=== PATIENT | female | born 1995 | race African-American/Black ===

== ENCOUNTER 2020-01-08 02:16 | Inpatient (IN) | payer BC ==
[2020-01-08] MEDS ORDERED: PROMETHAZINE HCL 25 MG/1 ML VIAL IVPUSH ONE (03:42)
[2020-01-08] MEDS ORDERED: BUTORPHANOL TARTRATE 1 MG/ML VIAL IVPB ONE (03:42)
--- NOTE | 2020-01-08 03:52 | HP ---
Past Medical History - Admission History of Present Illness: 24 yo @ 39 6/7 wks by first trimester ultrasound, EDC 01/09/2020 complicated by: 1. Poor weight gain during / weightloss during Starting weight 172 - 6 lb wt loss during Most recent ultrasound: 12/29 EFW 2973 g (24%) 6 lb 9 oz 2. GBS positive, no PCN allergy 3. 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 Hx/o schizophrenia with psychotic features s/p inpatient admission 2018 was on Risperdal and Abilify and Folic acid supplementation - DC'd in Has consistent follow up with counseolr 5. Third trimester microcytic anemia s/p IV iron History Source: Patient Limitations to Obtaining History: No Limitations - Past Medical History Cardiovascular: No: HTN Pulmonary: No: Asthma Gastrointestinal: No: GERD ...: 3 ...Para: 0 ...Term: 0 ...: 0 ...Induced : 2 ...EDC by Dates: 01/09/20 Heme/Onc: Yes: Anemia Psych: Yes: Schizophrenia (with psychotic features) - Past Surgical History Hx Myomectomy: No Hx Transabdominal Cerclage: No Additional Surgical History: D&C x 2 - Smoking History Smoking history: Current every day smoker Have you smoked in the past 12 months: Yes Aproximately how many cigarettes per day: 3 - Alcohol/Substance Use Hx Alcohol Use: No History of Substance Use: reports: None - Social History Usual Living Arrangement: Yes: With Significant Other History of Recent Travel: No Home Medications - Allergies Allergies/Adverse Reactions: Allergies Allergy/AdvReac Type Severity Reaction Status Date / Time No Known Allergies Allergy Verified 01/08/20 03:46 - Home Medications Home Medications: Ambulatory Orders Pnv No.95/Ferrous Fum/Folic AC [ Vitamin Tablet] 1 tab PO DAILY 01/08/20 Valacyclovir HCl [Valtrex -] 500 mg PO DAILY 01/08/20 Family Medical History Family History: Unable to Obtain Review of Systems - Review of Systems Constitutional: reports: No Symptoms Neck: reports: No Symptoms Cardiovascular: reports: No Symptoms Respiratory: reports: No Symptoms Musculoskeletal: reports: No Symptoms Integumentary: reports: No Symptoms Endocrine: reports: No Symptoms Psychiatric: reports: No Symptoms Physical Exam - Maternity Constitutional: Yes: Well Nourished, No Distress, Calm Cardiovascular: Yes: Regular Rate and Rhythm Lungs: Clear to auscultation - Abdominal Exam/OB Number of Fetuses: Single Presentation: Vertex Contractions: Yes Regularity: Regular Monitor Mode: External Heart Rate (range): 120 Category: I Accelerations: Non-Uniform Decelerations: None - Vaginal Exam/OB Vaginal Bleeding: No Speculum Exam: No Dilatation (cm): 2 Effacement (%): 90 Amniotic Membrane Status: Intact Nitrazine Test: Negative Presentation: Vertex/Position Station: -3 - Physical Exam Extremities: Yes: WNL Edema: No Psychiatric: Yes: Alert, Oriented - Labs Lab Results: PNL: O positive, antibody negative; RPR NR'; HIV neg x 2; Hbs Ag neg; HCV neg; Hg Rolanda AA; GCT WNL; GBS positive, Sequential 1&2 WNL; Inheritest WNL Hemorrhage Risk Assessment - Risk Factors Medium Risk Factors: Yes: None High Risk Factors: Yes: None Risk Score: 1 Risk Level: Medium Risk Assessment/Plan 24 yo @ 39 wks active labor 1. Admit to L&D 2. Routine labs collected and sent 3. GBS positive, will start penicillin 4. Will offer pain medication upon patient request 5. Category I FHT 6. Psych history - has close outpatient follow up Will encourage close follow up after delivery Disucssed risk of psychosis/depression with patient and mother 7. Will proceed with expectant management
[2020-01-08 04:17] VITALS: BMI 27.6
[2020-01-08] MEDS: ELECTROLYTE-148 SOLN 1,000 ML IV SCH ×2 (04:20→10:45)
[2020-01-08] MEDS ORDERED: AMPICILLIN - 2 GM in SODIUM CHLORIDE 100 ML IVPB ONE (04:30)
[2020-01-08] MEDS ORDERED: AMPICILLIN SODIUM 2 GM VIAL ONE (04:37)
[2020-01-08] MEDS ORDERED: BUTORPHANOL TARTRATE 2 MG/ML VIAL ONE (05:06)
[2020-01-08] MEDS ORDERED: PROMETHAZINE HCL 25 MG/1 ML VIAL ONE (05:07)
[2020-01-08 05:35] LABS: BASO % 0.3 % (0-2.0); EOS % 0.9 % (0-4.5); HEMATOCRIT 33.5 % (32.4-45.2); HEMOGLOBIN 10.6 GM/dL (10.7-15.3); LYMPH % 17.3 % (8-40); MCH 23.5 pg (25.7-33.7); MCHC 31.8 g/dl (32.0-36.0); MEAN CELL VOLUME 73.9 fl (80-96); MEAN PLT VOLUME 10.1 fl (7.5-11.1); MONO % 7.4 % (3.8-10.2); NEUT % 74.1 % (42.8-82.8); PLATELET COUNT 154 K/MM3 (134-434); RBC 4.53 M/mm3 (3.60-5.2); WHITE BLOOD COUNT 8.4 K/mm3 (4.0-10.0)
[2020-01-08 05:42] LABS: INR 0.94 (0.83-1.09); PROTHROMBIN TIME (PATIENT) 11.1 SEC (9.7-13.0)
[2020-01-08 05:45] LABS: ACTIVATED PTT 30.6 SECONDS (25.2-36.5)
[2020-01-08 05:55] LABS: BLOOD UREA NITROGEN 4.4 mg/dL (7-18); CALCIUM 8.9 mg/dL (8.5-10.1); CREATININE 0.5 mg/dL (0.55-1.3); POTASSIUM 3.5 mmol/L (3.5-5.1)
[2020-01-08] MEDS ORDERED: NALOXONE HCL 0.4 MG/ML VIAL IVPUSH PRN (08:35)
[2020-01-08] MEDS ORDERED: FENTANYL/BUPIVACAINE/NS/PF - PCEA - 50 ML DISP.SYRIN EP SCH (08:45)
--- NOTE | 2020-01-08 08:54 | PN ---
Ante-Partal Exam - Subjective Subjective: Patient drowsy s/p stadol Vital Signs: Vital Signs Temperature 97.5 F L 01/08/20 06:00 Pulse Rate 71 01/08/20 06:00 Respiratory Rate 18 01/08/20 06:00 Blood Pressure 115/67 01/08/20 06:00 O2 Sat by Pulse Oximetry (%) Bleeding: No Headache: No Visual changes: No Right upper quadrant pain: No - Contractions Contractions: Yes Regularity: Regular Intensity: Mod/Strong Monitor Mode: External - Exam during Labor Heart Rate: 130 Monitor Accelerations: Present Monitor Decelerations: None Exam: Vaginal Dilatation (cm): 3 Effacement (%): 100 Amniotic Membrane Status: Intact Presentation: Vertex Station: -3 - Intrapartum Hemorrhage Risk Medium Risk Factors: None High Risk Factors: None Risk Score: 0 Risk Level: Low Risk - Assessment/Plan Assessment/Plan: 24 yo active labor 1. discussed pain relief with patient, unsure re: epidural will offer if desires 2. GBS positive, on ampicillin 3. Category I 4. Will proceed with expectant managemen t
[2020-01-08] MEDS: AMPICILLIN - 1 GM in SODIUM CHLORIDE 100 ML IVPB SCH ×3 (09:05→21:50)
[2020-01-08] MEDS ORDERED: AMPICILLIN SODIUM 1 GM VIAL ONE ×2 (09:05→12:46)
[2020-01-08] MEDS ORDERED: PCA PUMP NR ONE (09:11)
[2020-01-08] MEDS ORDERED: FENTANYL/BUPIVACAINE/NS/PF - PCEA - 50 ML DISP.SYRIN EP ONE ×2 (09:11→13:53)
[2020-01-08] MEDS ORDERED: BUPIVACAINE HCL/PF 0.25% (2.5MG/ML) 10 ML VIAL ONE ×2 (09:20→14:07)
--- NOTE | 2020-01-08 10:20 | PN ---
Ante-Partal Exam - Subjective Subjective: Patient comfortable s/p epidural Vital Signs: Vital Signs Temperature 97.5 F L 01/08/20 06:00 Pulse Rate 71 01/08/20 06:00 Respiratory Rate 18 01/08/20 06:00 Blood Pressure 115/67 01/08/20 06:00 O2 Sat by Pulse Oximetry (%) Bleeding: No Headache: No Visual changes: No Right upper quadrant pain: No - Contractions Contractions: Yes Intensity: Unaware Monitor Mode: External - Exam during Labor Heart Rate: 125 Variability: Moderate Category: I Monitor Accelerations: Present Monitor Decelerations: Variable Exam: Vaginal Dilatation (cm): 3 Effacement (%): 100 Amniotic Membrane Status: Ruptured Amniotic Fluid: Clear Presentation: Vertex Station: -3 - Intrapartum Hemorrhage Risk Medium Risk Factors: None High Risk Factors: None Risk Score: 0 Risk Level: Low Risk - Assessment/Plan Assessment/Plan: 24 yo @ 39 wks active labor 1. unchanged exam, AROM performed, clear fluid 2. occasional variable deceleration, will change in maternal position, good variability 3. GBS pos, on ampicillin 4. Will continue expectant management
[2020-01-08] MEDS ORDERED: ceFAZolin SODIUM 1 GM VIAL ONE (14:17)
[2020-01-08] MEDS ORDERED: OXYTOCIN 20 UNITS in 0.9% NS 20 UNIT/1,000 ML INFUS.BAG IV ONE ×2 (15:02→16:34)
--- NOTE | 2020-01-08 15:06 | PN ---
Ante-Partal Exam - Subjective Subjective: Patient reports pain with contractions Vital Signs: Vital Signs Temperature 97.9 F 01/08/20 10:52 Pulse Rate 109 H 01/08/20 14:20 Respiratory Rate 18 01/08/20 14:20 Blood Pressure 115/85 01/08/20 14:20 O2 Sat by Pulse Oximetry (%) 100 01/08/20 14:20 Bleeding: No Headache: No Visual changes: No Right upper quadrant pain: No - Contractions Contractions: Yes Regularity: Regular Intensity: Mod/Strong Monitor Mode: External - Exam during Labor Variability: Moderate Category: I Monitor Accelerations: Present Monitor Decelerations: None Exam: Vaginal Dilatation (cm): 9 Effacement (%): 100 Presentation: Vertex Station: 0 - Intrapartum Hemorrhage Risk Medium Risk Factors: None High Risk Factors: None Risk Score: 0 Risk Level: Low Risk - Assessment/Plan Assessment/Plan: 24 yo in active labor 1. Good cervical change 2. GBS positive 3. Epidural catheter was disconnected, will not reconnect. Will proceed with expectant management 4. Category I FHT
[2020-01-08] MEDS: OXYTOCIN 20 UNITS in 0.9% NS 20 UNIT/1,000 ML INFUS.BAG IV SCH ×2 (15:30→16:40)
--- NOTE | 2020-01-08 15:52 | PN ---
Delivery - Delivery Vaginal Delivery: No Problems Type of Anesthesia: Local Episiotomy/Laceration: 2nd degree EBL (cc): 300 Delivery, Single - Stages of Labor Date 1st Stage Initiatied: 01/08/20 Time 1st Stage Initiated: 00:50 Date 2nd Stage Initiated: 01/08/20 Time 2nd Stage Initiated: 15:05 Date of Delivery: 01/08/20 Time of Delivery: 15:09 Date Placenta Delivered: 01/08/20 Time Placenta Delivered: 05:30 Placenta: Yes: Spontaneous - Condition of Infant Gender: Female Position: Left, OA Total Hours ROM (Hrs/Mins): 5 hours 9 minutes - 1 Minute Total Score: 9 5 Minutes Total Score: 9 - [place] Feeding Plan Initial Plan: Elected not to breastfeed exclusively throughout hospitalization Remarks - Remarks Remarks: Patient progressed to fully dilated and at 1509 via delivered a viable female infant in BOBBY position, APGARs 9,9. Weight and length unknown at this time. Head delivered spontaneously followed by shoulders and body without difficulty. with spontaneous cry and placed on mother's abdomen. Nose and mouth was bulb suctioned. Cord was clamped and cut. Perineum and vagina examined, a second degree laceration was noted and repaired in the usual fashion. Rectal exam revealed no sutures in rectum. Placenta was delivered spontaneously and intact. 20 units of pitocin in 1 L IVF was given. All counts correct x 2. Mother and infant stable in LDR. EBL 300cc.
[2020-01-08] MEDS ORDERED: ACETAMINOPHEN 325 MG TABLET (FP) ONE (16:15)
[2020-01-08] MEDS: ACETAMINOPHEN 325 MG TABLET (FP) PO PRN (16:15)
[2020-01-08] MEDS ORDERED: IBUPROFEN 600 MG TABLET (FP) PO ONE (16:15)
[2020-01-08] MEDS: IBUPROFEN 600 MG TABLET (FP) PO PRN (16:15)
[2020-01-08] MEDS ORDERED: BENZOCAINE 20% 57 GM BOTTLE TP PRN (16:19)
[2020-01-08] MEDS ORDERED: BENZOCAINE 28 GM HEMORRHOIDAL OINTMENT TP PRN (16:19)
[2020-01-08] MEDS ORDERED: WITCH HAZEL 50% (TUCKS) 40 PAD/JAR PAD TP PRN (16:19)
[2020-01-08] MEDS ORDERED: oxyCODONE HCL 5 MG TABLET PO PRN (16:19)
[2020-01-08] MEDS ORDERED: METHYLERGONOVINE MALEATE 0.2 MG/1 ML AMP IM PRN (16:19)
[2020-01-08] MEDS ORDERED: BISACODYL 10 MG SUPP.RECT RC PRN (16:19)
[2020-01-08] MEDS: valACYclovir HCL 500 MG TABLET (FP) PO SCH (22:41)
[2020-01-09] MEDS: IBUPROFEN 600 MG TABLET (FP) PO PRN (03:33)
[2020-01-09] MEDS: ACETAMINOPHEN 325 MG TABLET (FP) PO PRN ×2 (03:33→16:23)
[2020-01-09] MEDS: ELECTROLYTE-148 SOLN 1,000 ML IV SCH (04:54)
--- NOTE | 2020-01-09 06:28 | PN ---
Post Progress Note - Subjective Subjective: Patient without acute complaints. Reports tolerating oral intake without nausea or vomiting. Ambulating without dizziness. Denies fevers or chills. Pain well controlled with oral pain medication. without difficulty. Passing flatus. Post Day: 1 Type of Delivery: Vital Signs: Vital Signs Temperature 98.6 F 01/09/20 05:50 Pulse Rate 69 01/09/20 05:50 Respiratory Rate 18 01/09/20 05:50 Blood Pressure 124/78 01/09/20 05:50 O2 Sat by Pulse Oximetry (%) 99 01/09/20 05:50 Breast Exam: Yes: Soft - Labs Labs: CBC WBC 8.4 K/mm3 (4.0-10.0) 01/08/20 04:30 RBC 4.53 M/mm3 (3.60-5.2) 01/08/20 04:30 Hgb 10.6 GM/dL (10.7-15.3) L 01/08/20 04:30 Hct 33.5 % (32.4-45.2) 01/08/20 04:30 MCV 73.9 fl (80-96) L 01/08/20 04:30 MCH 23.5 pg (25.7-33.7) L 01/08/20 04:30 MCHC 31.8 g/dl (32.0-36.0) L 01/08/20 04:30 RDW 16.0 % (11.6-15.6) H 01/08/20 04:30 Plt Count 154 K/MM3 (134-434) 01/08/20 04:30 MPV 10.1 fl (7.5-11.1) 01/08/20 04:30 Absolute Neuts (auto) 6.2 K/mm3 (1.5-8.0) 01/08/20 04:30 Neutrophils % 74.1 % (42.8-82.8) 01/08/20 04:30 Lymphocytes % 17.3 % (8-40) 01/08/20 04:30 Monocytes % 7.4 % (3.8-10.2) 01/08/20 04:30 Eosinophils % 0.9 % (0-4.5) 01/08/20 04:30 Basophils % 0.3 % (0-2.0) 01/08/20 04:30 Nucleated RBC % 0 % (0-0) 01/08/20 04:30 Assessment/Plan 24 yo PPD # 1 s/p , afebrile, vital signs stable, doing well 1. Continue routine care. 2. Follow up AM CBC 3. Rh positive status, no rhogam indicated. 4. Encourage ambulation 5. Continue oral pain medication 6. Anticipate discharge home day #2
[2020-01-09 08:06] LABS: BASO % 0.2 % (0-2.0); EOS % 0.4 % (0-4.5); HEMATOCRIT 28.8 % (32.4-45.2); HEMOGLOBIN 9.3 GM/dL (10.7-15.3); LYMPH % 15.6 % (8-40); MCH 24.1 pg (25.7-33.7); MCHC 32.3 g/dl (32.0-36.0); MEAN CELL VOLUME 74.7 fl (80-96); MEAN PLT VOLUME 10.1 fl (7.5-11.1); MONO % 7.6 % (3.8-10.2); NEUT % 76.2 % (42.8-82.8); PLATELET COUNT 132 K/MM3 (134-434); RBC 3.86 M/mm3 (3.60-5.2); WHITE BLOOD COUNT 10.8 K/mm3 (4.0-10.0)
[2020-01-09] MEDS: PRENATAL VITAMINS W/ FOLIC ACID TABLET (FP) PO SCH (10:29)
[2020-01-09] MEDS: valACYclovir HCL 500 MG TABLET (FP) PO SCH (17:34)
[2020-01-09] MEDS: OXYTOCIN 20 UNITS in 0.9% NS 20 UNIT/1,000 ML INFUS.BAG IV SCH (19:26)
[2020-01-09] MEDS ORDERED: SENNOSIDES/DOCUSATE COMBO (SENNA PLUS) TABLET (UD) PO PRN (22:00)
[2020-01-10] MEDS: ACETAMINOPHEN 325 MG TABLET (FP) PO PRN (03:28)
[2020-01-10] MEDS: IBUPROFEN 600 MG TABLET (FP) PO PRN (03:29)
[2020-01-10 06:11] LABS: POC NITRAZINE NEG
--- NOTE | 2020-01-10 08:53 | DS ---
Physical Exam-MOLDING PROCESS TECHNICIAN Vital Signs: Vital Signs Temperature 98.8 F 01/09/20 21:49 Pulse Rate 84 01/09/20 21:49 Respiratory Rate 18 01/09/20 21:49 Blood Pressure 119/82 01/09/20 21:49 O2 Sat by Pulse Oximetry (%) 97 01/09/20 21:49 Constitutional: Yes: Well Nourished, No Distress, Calm Eyes: Yes: WNL, Conjunctiva Clear, EOM Intact HENT: Yes: WNL, Atraumatic, Normocephalic Neck: Yes: WNL, Supple, Trachea Midline Cardiovascular: Yes: WNL, Regular Rate and Rhythm Respiratory: Yes: WNL, Regular, CTA Bilaterally Gastrointestinal: Yes: WNL, Normal Bowel Sounds, Soft ...Rectal Exam: Yes: Deferred Renal/: Yes: WNL Internal Exam Deferred: Yes ....Post : Yes: Uterus firm, Uterus non-tender, Slight lochia rubra Breast(s): Yes: WNL Musculoskeletal: Yes: WNL Extremities: Yes: WNL Edema: Yes Edema: LLE: Trace, RLE: Trace Integumentary: Yes: WNL Neurological: Yes: WNL, Alert, Oriented ...Motor Strength: WNL Psychiatric: Yes: WNL, Alert, Oriented Labs: CBC, BMP 01/09/20 07:32 01/08/20 04:30 Delivery - Delivery Vaginal Delivery: No Problems, Spontaneous Type of Anesthesia: Epidural Episiotomy/Laceration: Vaginal Extension/lac, 2nd degree EBL (cc): 300 Delivery, Single - Stages of Labor Date 1st Stage Initiatied: 01/08/20 Time 1st Stage Initiated: 00:50 Date 2nd Stage Initiated: 01/08/20 Time 2nd Stage Initiated: 15:05 Date of Delivery: 01/08/20 Time of Delivery: 15:09 Time Placenta Delivered: 05:30 Placenta: Yes: Spontaneous, Normal Configuration - 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 Gender: Female Weight: 3.09 kg Position: Left, OA Total Hours ROM (Hrs/Mins): 5 hours 9 minutes - 1 Minute Total Score: 9 5 Minutes Total Score: 9 - [place] Feeding Plan Initial Plan: Elected not to breastfeed exclusively throughout hospitalization Benefits of Exclusively reinforced: Yes Discharge Summary Problems reviewed: Yes Reason For Visit: LABOR ADMIT Spont labor at 39w6d Procedures: Principal: Other Procedures: Repair 2nd degree perineal OB laceration Hospital Course: Normal recovery Health Concerns: Anemia Plan of Treatment: Normal recovery, encourage Condition: Good - Instructions Diet, Activity, Other Instructions: Physical activity Resume your normal everyday activity as tolerated no heavy lifting or exercise until seen by your surgeon. You may walk unlimited betty of and climb stairs. You may resume driving the car when you feel safe and comfortable behind the wheel. No sexual activity as instructed. Wound care If you have a bandage, leave it on, and keep dry for 48-72 hours. After that time discard the outer bandage. If they are tapes on the skin under the out of bandage leave them in place. They will peel off in the next 7 to 10 days. Do Not Peel them off. You may shower the day after surgery. If there are tapes present on the skin, you may shower over them. Diet There are no dietary restrictions. Eat healthy, high-fiber foods. Drink 6 to 8 glasses of liquid each day. This will assist in keeping your bowels are regular. Pain management You may take Tylenol or acetaminophen or Ibuprofen (for example, Motrin, Advil etc.) from my pain prescription medication is ordered should be taken as prescribed for moderate to severe pain. Call MD for any of the following: Severe pain not relieved by medication Fever of 101 or higher Excessive bleeding or drainage on dressing Inability to urinate Referrals: Quinn Kulkarni MD [Staff Physician] - 1 Month Disposition: HOME - Home Medications Comprehensive Discharge Medication List: Ambulatory Orders Pnv No.95/Ferrous Fum/Folic AC [ Vitamin Tablet] 1 tab PO DAILY 01/08/20 Valacyclovir HCl [Valtrex -] 500 mg PO DAILY 01/08/20 Prescription Drug Monitoring Program (I-STOP) results: I-STOP not reviewed
[2020-01-10 09:04] VITALS: BP 105/69; PULSE 69; TEMP 98
[2020-01-10] MEDS: PRENATAL VITAMINS W/ FOLIC ACID TABLET (FP) PO SCH (09:18)
== END 2020-01-10 14:45 | disposition home or self-care (01) | DRG 560 ==
LOC: JDEL 02:16 → JLDR 02:30 → J3W 17:50
PROVIDERS: ADMIT Obstetrics & Gynecology; ATTEND Obstetrics & Gynecology
PROC: 10E0XZZ Delivery of Products of Conception, External Approach (ICD-10-PCS; principal; 2020-01-08)
PROC: 0KQM0ZZ Repair Perineum Muscle, Open Approach (ICD-10-PCS; 2020-01-08)
PROC: 10907ZC Drainage of Amniotic Fluid, Therapeutic from Products of Conception, Via Natural or Artificial Opening (ICD-10-PCS; 2020-01-08)
DX: O70.1 Second degree perineal laceration during delivery (principal); O99.824 Streptococcus B carrier state complicating childbirth; Z37.0 Single live birth; O98.52 Other viral diseases complicating childbirth; B00.9 Herpesviral infection, unspecified; O99.344 Other mental disorders complicating childbirth; F20.89 Other schizophrenia; O26.13 Low weight gain in pregnancy, third trimester; O99.334 Smoking (tobacco) complicating childbirth; F17.210 Nicotine dependence, cigarettes, uncomplicated; O99.02 Anemia complicating childbirth; D50.9 Iron deficiency anemia, unspecified; Z3A.39 39 weeks gestation of pregnancy; Z3A.37 37 weeks gestation of pregnancy
CPT/HCPCS: 36415; 59409; 80048; 83986-QW; 85025; 85610; 85730; 86780; 86850; 86900; 86901; U0003